=== PATIENT | female | born 1970 | race American Indian/Alaskan Native ===

== ENCOUNTER 2021-07-22 09:50 | Emergency (ER) | payer BC ==
[2021-07-22] MEDS ORDERED: KETOROLAC 60 MG/2 ML INJ IM ONE (11:19)
[2021-07-22] MEDS ORDERED: dexAMETHasone 20 MG/5 ML VIAL IM ONE (11:20)
--- NOTE | 2021-07-22 12:51 | Emergency Department Report ---
ED Back Pain/Injury HPI - General Chief Complaint: Back Pain/Injury Stated Complaint: SEVERE SCIATIC PAIN Source: patient Limitations: No Limitations - History of Present Illness Initial Comments: 50 y/o female presents to the ED complaining of low back pain radiating to the right leg x1 day. She states that she has a history of sciatica pain. States she had surgery in 2009. She states that she currently do not have any medication. Patient states pain is currently 10 out of 10. Patient is ambulatory. Patient denies any dysuria, loss of bowel or bladder, fever. IV drug use or steroid use. Patient is alert and oriented. No acute distress noted. No ill appearance noted. - Related Data Previous Rx's Medication Instructions Recorded Last Taken Type Naproxen [Naprosyn] 500 mg PO BID 15 Days #30 tablet 07/22/21 Unknown Rx Allergies Allergy/AdvReac Type Severity Reaction Status Date / Time No Known Allergies Allergy Verified 07/22/21 10:51 ED Review of Systems ROS: Stated complaint: SEVERE SCIATIC PAIN Other details as noted in HPI Constitutional: denies: chills, fever Eyes: denies: eye pain, eye discharge, vision change ENT: denies: ear pain, throat pain Respiratory: denies: cough, shortness of breath, wheezing Cardiovascular: denies: chest pain, palpitations Endocrine: no symptoms reported Gastrointestinal: denies: abdominal pain, nausea, diarrhea Genitourinary: denies: urgency, dysuria, discharge Musculoskeletal: back pain. denies: joint swelling, arthralgia Skin: denies: rash, lesions Neurological: denies: headache, weakness, paresthesias Psychiatric: denies: anxiety, depression Hematological/Lymphatic: denies: easy bleeding, easy bruising ED Past Medical Hx - Past Medical History Previous Medical History?: No - Surgical History Past Surgical History?: No - Medications Home Medications: Home Medications Medication Instructions Recorded Confirmed Last Taken Type Naproxen [Naprosyn] 500 mg PO BID 15 Days #30 tablet 07/22/21 Unknown Rx ED Physical Exam - General Limitations: No Limitations General appearance: alert, in no apparent distress - Head Head exam: Present: atraumatic, normocephalic - Eye Eye exam: Present: normal appearance - ENT ENT exam: Present: mucous membranes moist - Neck Neck exam: Present: normal inspection - Respiratory Respiratory exam: Present: normal lung sounds bilaterally. Absent: respiratory distress - Cardiovascular Cardiovascular Exam: Present: regular rate, normal rhythm. Absent: systolic murmur, diastolic murmur, rubs, gallop - GI/Abdominal GI/Abdominal exam: Present: soft, normal bowel sounds - Extremities Exam Extremities exam: Present: normal inspection - Back Exam Back exam: Present: normal inspection - Neurological Exam Neurological exam: Present: alert, oriented X3 - Psychiatric Psychiatric exam: Present: normal affect, normal mood - Skin Skin exam: Present: warm, dry, intact, normal color. Absent: rash ED Course Vital Signs 07/22/21 07/22/21 10:51 13:04 Temperature 98.5 F 98.4 F Pulse Rate 90 88 Respiratory 20 18 Rate Blood Pressure 125/64 Blood Pressure 148/90 [Right] O2 Sat by Pulse 100 97 Oximetry ED Medical Decision Making - Medical Decision Making 50 y/o female presents to the ED complaining of low back pain radiating to the right leg x1 day. She states that she has a history of sciatica pain. States she had surgery in 2009. She states that she currently do not have any medication. Patient states pain is currently 10 out of 10. Patient is ambulatory. Patient denies any dysuria, loss of bowel or bladder, fever. IV drug use or steroid use. Patient is alert and oriented. No acute distress noted. No ill appearance noted. Rechecked the patient is resting quietly quietly and comfortable and feeling better. I discussed the results of diagnostic study, my clinical impression and the plan for further treatment with the patient. Patient agrees with plan and discharge at this present time. All question addressed. I have given the patient instruction regarding a diagnosis ,expectation ,follow- up and return precaution. I explained to the patient that emergent condition may arise and to return to the ED for new worsen and any new persisting condition. I have explained the importance of following up with the primary care physician or referral physician listed below has instructed. The patient verbalized understanding of discharge instruction. Critical care attestation.: If time is entered above; I have spent that time in minutes in the direct care of this critically ill patient, excluding procedure time. ED Disposition Clinical Impression: Back pain Qualifiers: Back pain location: low back pain Chronicity: acute Back pain laterality: right Sciatica presence: with sciatica Sciatica laterality: sciatica of right side Qualified Code(s): M54.41 - Lumbago with sciatica, right side Disposition: HOME / SELF CARE / HOMELESS Is pt being admited?: No Does the pt Need Aspirin: No Condition: Stable Instructions: Acute Back Pain, Adult Additional Instructions: Take medication as prescribed Return to the ED with any worsening symptom Prescriptions: Naproxen [Naprosyn] 500 mg PO BID 15 Days #30 tablet Referrals: YUNG SALAZAR MD [Primary Care Provider] - 3-5 Days RAFAEL BARBOUR MD [Staff Physician] - 3-5 Days Forms: Work/School Release Form(ED)
[2021-07-22 13:05] VITALS: BP 148/90
== END 2021-07-22 13:05 | disposition home or self-care (01) ==
LOC: ED 09:50
DX: M54.50 Low back pain, unspecified (principal)
CPT/HCPCS: 96372; 99282; J1100; J1885